=== PATIENT | male | born 1960 | race Caucasian/White ===

== ENCOUNTER 2017-03-17 00:47 | Inpatient (IN) | payer OTHER ==
[2017-03-17] MEDS ORDERED: LIDOCAINE 2% INJ 20 MG/ML (20 ML MDV) ONE (00:55)
[2017-03-17] MEDS ORDERED: fentaNYL (PF) 50 MCG/ML 2 ML AMP ONE (01:10)
[2017-03-17] MEDS ORDERED: VERAPAMIL 2.5 MG/ML 2 ML AMP ONE (01:15)
[2017-03-17] MEDS ORDERED: LIDOCAINE 2% INJ 20 MG/ML SQ ONE (01:16)
[2017-03-17] MEDS ORDERED: VERAPAMIL SYRINGE (5 MG/10 ML) INTRAARTER ONE (01:19)
[2017-03-17] MEDS ORDERED: fentaNYL (PF) 50 MCG/ML 2 ML AMP IV ONE (01:19)
[2017-03-17] MEDS ORDERED: PRASUGREL 10 MG TAB ONE (01:24)
[2017-03-17] MEDS ORDERED: BIVALIRUDIN BOLUS 250 MG/50 ML IV ONE (01:26)
[2017-03-17] MEDS ORDERED: PRASUGREL 10 MG TAB PO ONE (01:26)
[2017-03-17] MEDS ORDERED: SODIUM CHLORIDE 0.9% 1,000 ML IV ONE (01:27)
[2017-03-17] MEDS ORDERED: BIVALIRUDIN 250 MG in SODIUM CHLORIDE 0.9% 50 ML IV ONE (01:27)
[2017-03-17] MEDS ORDERED: METOPROLOL TARTRATE 5 MG/5 ML VIAL IVP ONE ×2 (01:29)
[2017-03-17] MEDS ORDERED: IOHEXOL 350 MG/ML 125ML BOTTLE INJ ONE (01:46)
[2017-03-17] MEDS ORDERED: SODIUM CHLORIDE 0.9% 1,000 ML IV SCH (02:00)
[2017-03-17] MEDS ORDERED: ZOLPIDEM 5 MG TAB PO PRN (02:00)
[2017-03-17] MEDS ORDERED: MAG HYDROX/AL HYDROX/SIMETH 30 ML CUP PO PRN (02:00)
[2017-03-17] MEDS ORDERED: RX INFO: IV CONTRAST WAS GIVEN 1 EACH MISC MISCELLANE PRN (02:00)
[2017-03-17] MEDS ORDERED: ATROPINE SULFATE 0.1 MG/ML 10ML SYRINGE IV PRN (02:00)
[2017-03-17] MEDS ORDERED: NITROGLYCERIN SL TABS 0.4 MG TAB SUBLINGUAL PRN (02:00)
[2017-03-17 02:15] LABS: Glucose,Whole Blood 122 mg/dL (75-99)
[2017-03-17 02:56] LABS: CH 32.1; CHCM 33.8; HCT 40.6 % (39.0-53.0); HDW 2.14; HGB 13.6 gm/dL (13.0-17.5); MCH 31.8 pg (25.0-35.0); MCHC 33.4 g/dL (31.0-37.0); MCV 95.4 fL (80.0-100.0); Mean Platelet Volume 8.1; RBC 4.26 m/uL (4.30-5.90); RDW 13.8 % (11.5-15.5); WBC 11.4 k/uL (3.8-10.6)
[2017-03-17 02:58] VITALS: BMI 45.4
[2017-03-17 03:18] LABS: Anion Gap 13 mmol/L; Blood Urea Nitrogen 13 mg/dL (9-20); Calcium 8.9 mg/dL (8.4-10.2); Carbon Dioxide 25 mmol/L (22-30); Chloride 100 mmol/L (98-107); Glucose 107 mg/dL (74-99); Magnesium 1.9 mg/dL (1.6-2.3); Non-African American GFR(MDRD) >60 (>60 ml/min/1.73 sqM); Sodium 138 mmol/L (137-145)
--- NOTE | 2017-03-17 05:59 | CONS ---
This is a 56-year-old male patient who was watching television at around 11:30 p.m. yesterday. He started experiencing chest discomfort going through to his back with interscapular discomfort. The pain persisted and he went to the emergency room at [facility]. His 12-lead ECG at 11:50 p.m. on the [address] elevation in the inferior leads with Q waves in lead III with ST depression in V1 and V2 as well as lead I and aVL. After he was treated with IV heparin, IV nitroglycerin and aspirin and I asked the physician to give him oral statins. I met the patient in [facility] once he was transferred over. According to the patient, his interscapular discomfort was far more prominent than the anterior chest wall discomfort, but the pain has completed resolved at this time. In fact on the monitor in the laborer yard, he does not appear to have any ST elevation in the inferior leads at all and his pain is completely gone. PAST HISTORY: Hypertension. He is on lisinopril, hydrochlorothiazide. No diabetes, no dyslipidemia. Past history of smoking, he quit smoking 3 years back. ALLERGIES: No known drug allergies. REVIEW OF SYSTEMS: No fever, chills or rigors. No cough or expectoration. No nausea, vomiting or diarrhea. No hematuria or dysuria. No strokes or seizures. No skin lesion or musculoskeletal complaints. On examination, his pulses are equal bilaterally. He has no radial femoral delay. Both radial pulses are equal bilaterally. Heart sounds, S1 and S2 are normal. There is no audible murmur. When I first examined them in the ER at [place], he had ventricular bigeminy which is also resolved. Breath sounds are equal bilaterally. He has central obesity. His BMI is 37. Abdomen is soft, nontender. Extremities are warm, no edema. Pulses are well palpable and are equal in both lower extremities. IMPRESSION: 1. A 56-year-old male patient presenting with chest discomfort radiating through to his back with ST elevation in the inferior leads with ST depression in V1 and V2 and one in aVL (ST elevation myocardial infarction). 2. Hypertension, elevated blood pressure. 3. Equal pulses bilaterally in both lower extremities and no brachial femoral delay. SUGGEST: The patient is already in the laborer yard; therefore, we will proceed with coronary angiography. I spoke to the ER physician once again to inquire about the chest x-ray. He did state that the mediastinum appeared to be somewhat ( ) side, but he had thought that he was a large gentleman and therefore this was acceptable. I did speak with Dr. Gann regarding the interscapular back discomfort, which is not completely resolved. We will proceed with coronary angiography given that the pulses are equal bilaterally. TAMARA
--- NOTE | 2017-03-17 08:36 | P.PN ---
Subjective Principal diagnosis: Acute coronary syndrome Acute inferior ST elevation AR This is a pleasant 68-year-old gentleman who presented to the hospital for chest discomfort and was diagnosed with acute inferior STEMI. He underwent an emergent heart catheterization and stenting of the RCA. He is asymptomatic from a cardiovascular standpoint of view and denies having any chest pain or discomfort or difficulty breathing. Objective - Vital Signs Vital signs: Vital Signs Temp 98.8 F 03/17/17 04:00 Pulse 74 03/17/17 07:00 Resp 15 03/17/17 07:00 BP 152/76 03/17/17 07:00 Pulse Ox 92 L 03/17/17 07:00 Intake & Output 03/16/17 03/17/17 03/17/17 18:59 06:59 18:59 Intake Total 487.8 100 Output Total 700 Balance -212.2 100 Weight 135.7 kg Intake: IV 487.8 100 Sodium Chloride 0.9% 1, 400 100 000 ml @ 100 mls/hr IV . Q10H ISAC Rx#:[id number] Output: Urine 700 - Constitutional General appearance: Present: no acute distress - Respiratory Respiratory: bilateral: CTA - Cardiovascular Rhythm: regular Heart sounds: normal: S1, S2 - Labs CBC & Chem 7: 03/17/17 02:37 03/17/17 02:37 Labs: Abnormal Lab Results - Last 24 Hours (Table) 03/17/17 03/17/17 03/17/17 Range/Units 02:13 02:37 02:37 WBC 11.4 H (3.8-10.6) k/uL RBC 4.26 L (4.30-5.90) m/uL Glucose (74-99) mg/dL POC Glucose (mg/dL) 122 H (75-99) mg/dL Troponin I 0.719 H* (0.000-0.034) ng/mL 03/17/17 Range/Units 02:37 WBC (3.8-10.6) k/uL RBC (4.30-5.90) m/uL Glucose 107 H (74-99) mg/dL POC Glucose (mg/dL) (75-99) mg/dL Troponin I (0.000-0.034) ng/mL Assessment and Plan Plan: This is a 56-year-old gentleman with acute inferior AR 1 underwent stenting of the RCA. I will continue the current medical treatment which included dual antiplatelet therapy and statin and follow-up with the patient. Follow-up on the echocardiogram.
[2017-03-17] MEDS: ASPIRIN 81 MG CHEW PO SCH (08:56)
[2017-03-17] MEDS: LISINOPRIL 5 MG TAB PO SCH (08:56)
[2017-03-17] MEDS: METOPROLOL TARTRATE 25 MG TAB PO SCH ×2 (08:56→20:26)
[2017-03-17] MEDS: PRASUGREL 10 MG TAB PO SCH (10:16)
[2017-03-17 17:53] LABS: Appearance,Urine Clear (Clear); Bilirubin,Urine Negative (Negative); Glucose,Urine (UA) Negative (Negative); Ketones,Urine Negative (Negative); Leukocyte Esterase,Urine Negative (Negative); Nitrite,Urine Negative (Negative); PH, Urine 6.5 (5.0-8.0); Protein,Urine Negative (Negative); Specific Gravity,Urine 1.009 (1.001-1.035); UA Billing (MACRO vs. MICRO) CHEM; Urobilinogen,Urine <2.0 mg/dL (<2.0)
--- NOTE | 2017-03-17 19:09 | ECHOF ---
Referral Reason:mi MEASUREMENTS -------- HEIGHT: 182.9 cm WEIGHT: 124.7 kg BP: 138/73 RVIDd: 3.8 cm (< 3.3) IVSd: 1.2 cm (0.6 - 1.1) LVIDd: 3.9 cm (3.9 - 5.3) LVPWd: 1.3 cm (0.6 - 1.1) IVSs: 1.6 cm LVIDs: 3.1 cm LVPWs: 1.3 cm LA Diam: 3.3 cm (2.7 - 3.8) LAESV Index (A-L): 26.36 ml/m Ao Diam: 3.4 cm (2.0 - 3.7) AV Cusp: 1.7 cm (1.5 - 2.6) LA Diam: 3.8 cm (2.7 - 3.8) MV EXCURSION: 18.069 mm (> 18.000) MV EF SLOPE: 122 mm/s (70 - 150) EPSS: 0.5 cm MV E Johnny: 0.95 m/s MV DecT: 219 ms MV A Johnny: 0.70 m/s MV E/A Ratio: 1.35 RAP: 5.00 mmHg RVSP: 11.07 mmHg FINDINGS -------- Sinus rhythm. Morbid Obesity This was a techncally difficult study with suboptimal views, , Definity utilized for enhancement of images. There is mild concentric left ventricular hypertrophy. Overall left ventricular systolic function is normal with, an EF between 55 - 60 %. The right ventricle is moderately enlarged. Normal LA size by volume 22+/-6 ml/m2. The right atrial size is normal. 1.5MG OF DEFINITY UTLIZED: 2 OR MORE WALL SEGMENTS NOT VISUALIZED. There is mild aortic valve sclerosis. There is no evidence of aortic regurgitation. Mild mitral regurgitation is present. Mild tricuspid regurgitation present. There is no evidence of pulmonary hypertension. The right ventricular systolic pressure, as measured by Doppler, is 11.07mmHg. Trace/mild (physiologic) pulmonic regurgitation. The aortic root size is normal. Echo free space may represent effusion or a pericardial fat pad. CONCLUSIONS -------- 1. Morbid Obesity 2. There is no evidence of pulmonary hypertension. 3. The right ventricular systolic pressure, as measured by Doppler, is 11.07mmHg. 4. Trace/mild (physiologic) pulmonic regurgitation. 5. Echo free space may represent effusion or a pericardial fat pad. 6. This was a techncally difficult study with suboptimal views, , Definity utilized for enhancement of images. 7. There is mild concentric left ventricular hypertrophy. 8. Overall left ventricular systolic function is normal with, an EF between 55 - 60 %. 9. The right ventricle is moderately enlarged. 10. 1.5MG OF DEFINITY UTLIZED: 2 OR MORE WALL SEGMENTS NOT VISUALIZED. 11. There is mild aortic valve sclerosis. 12. Mild mitral regurgitation is present. 13. Mild tricuspid regurgitation present. BUSINESS SYSTEM MANAGER: Kendal Ji RDCS
[2017-03-17] MEDS: ATORVASTATIN 80 MG TAB PO SCH (20:26)
[2017-03-17] MEDS ORDERED: Magnesium Replacement Protocol 1 EACH MISC MISCELLANE PRN (21:05)
[2017-03-17] MEDS: MAGNESIUM SULFATE-D5W PMX 1 GM in DEXTROSE/WATER 1 100ML.BAG IVPB SCH ×2 (21:45→22:46)
[2017-03-18 04:49] LABS: Basophils # (A) 0.1 k/uL (0-0.2); Basophils % (A) 1 %; CH 31.4; CHCM 33.2; Eosinophils # (A) 0.2 k/uL (0-0.7); Eosinophils % (A) 2 %; HCT 39.8 % (39.0-53.0); HDW 2.18; HGB 13.5 gm/dL (13.0-17.5); Luc # (Auto) 0.15; Luc % (Auto) 1; Lymphocytes # (A) 2.1 k/uL (1.0-4.8); Lymphocytes % (A) 19 %; MCH 32.3 pg (25.0-35.0); MCV 95.1 fL (80.0-100.0); Mean Platelet Volume 7.4; Monocytes # (A) 0.7 k/uL (0-1.0); Monocytes % (A) 6 %; Neutrophils % (A) 71 %; RBC 4.18 m/uL (4.30-5.90); RDW 13.4 % (11.5-15.5); WBC 11.2 k/uL (3.8-10.6); WBC (Perox) 11.26
[2017-03-18 04:58] LABS: Anion Gap 5 mmol/L; Blood Urea Nitrogen 9 mg/dL (9-20); Calcium 8.2 mg/dL (8.4-10.2); Carbon Dioxide 28 mmol/L (22-30); Chloride 106 mmol/L (98-107); Cholesterol 156 mg/dL (<200); Glucose 87 mg/dL (74-99); HDL Cholesterol 30 mg/dL (40-60); Magnesium 2.3 mg/dL (1.6-2.3); Non-African American GFR(MDRD) >60 (>60 ml/min/1.73 sqM); Sodium 139 mmol/L (137-145)
--- NOTE | 2017-03-18 07:47 | CC ---
Mr. Salter is a 56 year old male with known history of hypertension who presented to [facility] with symptoms of intrascapularly discomfort as well as EKG change with ST segment elevation inferiorly. He was evaluated by Dr. Burton and recommendation was made regarding cardiac catheterization. The procedure as well as risks and complications were discussed with the patient who is in full understanding and agreement. PROCEDURE: The patient was brought to the geotechnical laboratory technician. After he received Fentanyl and Benadryl, and after achieving moderate conscious sedated state, using Xylocaine anesthesia and Seldinger technique, a 6 Faroese sheath was introduced into the right radial artery . Selective right and left coronary angiography was performed using 5 Faroese 3.5 Bend, right and left Jeferson catheter, multiple views of the coronary arteries including hemiaxial views were obtained. Following that, angioplasty and stenting of the right coronary artery was performed. Following that a 5 Faroese tight pigtail catheter was introduced into the left ventricle and a 30 degree TURNER view of the left ventricle was obtained. Following that, catheter and sheath were removed. Hemostasis was obtained with deployment of a TR band. There were no immediate complications. The patient was returned to his room in stable condition. FINDINGS: LEFT MAIN: This is a large size vessel bifurcating into left circumflex, left anterior descending artery. Left main coronary artery has 20 to 30% plaque distally. LEFT ANTERIOR DESCENDING ARTERY: This is a large size vessel reaching towards the apex with a wrap around the apex segment. The left anterior descending artery has no evidence of high grade stenosis. LEFT CIRCUMFLEX: This is a large nondominant vessel, large vessel, giving rise to large obtuse marginal branches. The left circumflex at the takeoff has 40 to 50% plaque. The rest of the vessel has no high grade stenosis. RIGHT CORONARY ARTERY: This is a large dominant vessel, bifurcating distally into PDA and posterolateral segment and branches. The right coronary artery in the mid distal segment has a tubular lesion of 99% stenosis. The rest of the vessel has no high grade stenosis. LEFT VENTRICULOGRAM: Left ventriculogram was performed in 30 degree TURNER view and revealed minimal inferobasal hypokinesis. The ejection fraction was 50 to 55%. There was no significant mitral regurgitation. HEMODYNAMICS: There was no gradient across the aortic valve. The left ventricular end diastolic pressure was 18 mmHg. CONCLUSION: 1. Critical stenosis involving the mid distal right coronary artery. 2. Mild disease in the distal left main with moderate disease n the ostial LCX. 3. Minimally impaired left ventricular systolic function. RECOMMENDATIONS: In view of the findings and anatomy, I have recommended proceeding with angioplasty and stenting. The procedure as well as risks and complications were discussed with the patient who is in full understanding and agreement. TAMARA
--- NOTE | 2017-03-18 08:12 | PTCA ---
Mr. Salter is a 56 -year-old male who presented with symptoms of intrascapulary discomfort with ST segment elevation inferiorly, underwent cardiac catheterization and was found to have critical stenosis involving the mid distal right coronary artery. In view of that, recommendation was made regarding angioplasty and stenting. The procedure as well as risks and complications were discussed with the patient who is in full understanding and agreement. PROCEDURE: A 6 Burmese 3.5 bend FR guiding catheter was introduced into the system. After cannulating the right coronary ostium, 0.014 balanced medium weight J wire was advanced across the lesion and positioned distally. Then a 3.0 x 18 mm Xience Alpine stent was deployed. It was dilated at 14 atmospheres. After the last inflation, after appropriate wait, the balloon and the guidewire were withdrawn back in the guiding catheter. Images were obtained, repeated. Those images revealed stable successful stenting. At that point, the guiding catheter, the balloon and the guidewire were removed and a 5 Burmese tight pigtail catheter was introduced into the left ventricle. Left ventriculogram was obtained. Following that, the catheter and sheath were removed. Hemostasis was obtained with deployment of a TR band. There were no immediate complications. The patient is returned to his room in stable condition. Of note, the patient received Angiomax per protocol as well as oral loading dose of Effient. He had EKG changes with the inflation that resolved at the end of the procedure. RESULTS: Successful stenting of the distal right coronary artery with reduction of stenosis from 99% to 0%. RECOMMENDATIONS: The patient will be continued on aspirin, Effient, beta felipe , alex inhibitors, statins. The importance of dual antiplatelet treatment was discussed with the patient and his family who is in full understanding and agreement. Duration of procedure: 40 minutes. TAMARA
[2017-03-18] MEDS: ASPIRIN 81 MG CHEW PO SCH (08:16)
[2017-03-18] MEDS: LISINOPRIL 5 MG TAB PO SCH (08:16)
[2017-03-18] MEDS: METOPROLOL TARTRATE 25 MG TAB PO SCH ×2 (08:16→20:39)
[2017-03-18] MEDS: PRASUGREL 10 MG TAB PO SCH (08:17)
--- NOTE | 2017-03-18 11:28 | HP ---
CHIEF COMPLAINT: Chest pain. HISTORY OF PRESENT ILLNESS: This 56-year-old gentleman with a past medical history of multiple medical problems, including hypertension, history of pneumonia, being followed by Dr. Mendoza in the outpatient setting, presented to [facility] with complaints of chest pain. The pain was felt in the anterior part of the chest, radiating to the back, and the pain was in character. The patient had ST-T changes in the inferior leads. He was transferred to [facility] for cardiac catheterization. The patient underwent RCA stenting. He is being closely monitored at this time. There is no history of any fever, rigor or chills. No history of headache, loss of consciousness, seizures. PAST MEDICAL HISTORY: 1. History of hypertension. 2. History of pneumonia. Medications prior to admission include Losartan/hydrochlorothiazide 100/25 p.o. daily. ALLERGIES: NONE. FAMILY HISTORY: History of cardiac ablation. SOCIAL HISTORY: Previous history of smoking. No current smoking. Occasional alcohol intake. REVIEW OF SYSTEMS: ENT: No diminished hearing. No diminished vision. CARVIOVASCULAR SYSTEM: As mentioned earlier. RESPIRATORY SYSTEM: As mentioned earlier. GI: No nausea, vomiting. : No dysuria, retention. NERVOUS SYSTEM: No numbness, weakness. ALLERGY/IMMUNOLOGY: No asthma, hayfever. MUSCULOSKELETAL: As mentioned earlier. HEMATOLOGY/ONCOLOGY: No history of anemia. ENDOCRINE: No history of diabetes. CONSTITUTIONAL: As mentioned earlier. DERMATOLOGY: Negative. RHEUMATOLOGY: Negative. PSYCHIATRY: As mentioned earlier. PHYSICAL EXAM: Patient is alert and oriented x3. Pulse is 71, blood pressure 108 /68, respiration 15, temperature normal, pulse ox 93% on room air. HEENT: Conjunctivae normal. NECK: No jugular venous distention. CARDIOVASCULAR: S1, S2 muffled. RESPIRATORY: Breath sounds diminished at the bases. No rhonchi. No crackles. ABDOMEN: Soft. Non-tender. No mass palpable. LEGS: No edema. No swelling. NERVOUS SYSTEM: Higher functions as mentioned earlier. Moves all 4 limbs. No focal motor or sensory deficit. LYMPHATICS: No lymph node palpable in neck, axillae or groin. SKIN: No ulcer, rash, bleeding. LABS: WBC 11.4. Troponin 0.719. ASSESSMENT: 1. Acute [id number] inferior wall myocardial infarction, status post cardiac catheterization and RCA stenting. 2. Troponin 5.50. 3. Increased white count, possibly reactive. 4. Hypertension. 5. History of pneumonia. 6. Remote history of nicotine dependence. RECOMMENDATIONS AND DISCUSSION: I recommend to continue the current medications , continue the monitoring and symptomatic treatment. Otherwise, at this time I would recommend repeat labs. I would also recommend UA with micro. Closely follow with Cardiology. Antiplatelet agents. Post stent protocol. Further recommendations to follow. Recommend close followup with primary physician after discharge. TAMARA
--- NOTE | 2017-03-18 19:57 | P.PN ---
Subjective Principal diagnosis: Acute coronary syndrome Acute inferior ST elevation OR This is a pleasant 68-year-old gentleman who presented to the hospital for chest discomfort and was diagnosed with acute inferior STEMI. He underwent an emergent heart catheterization and stenting of the RCA. He is asymptomatic from a cardiovascular standpoint of view and denies having any chest pain or discomfort or difficulty breathing. Objective - Vital Signs Vital signs: Vital Signs Temp 97 F L 03/18/17 14:09 Pulse 71 03/18/17 14:09 Resp 16 03/18/17 14:09 BP 143/87 03/18/17 14:09 Pulse Ox 96 03/18/17 14:09 Intake & Output 03/18/17 03/18/17 03/19/17 06:59 18:59 06:59 Intake Total 1100 240 Output Total 1500 Balance -400 240 Weight 134.1 kg Intake: IV 1000 Magnesium Sulfate-D5w Pmx 200 1 gm In Dextrose/Water 1 100ml.bag @ 100 mls/hr IVPB Q1H ISAC Rx#: [id number] Sodium Chloride 0.9% 1, 800 000 ml @ 100 mls/hr IV . Q10H ISAC Rx#:[id number] Oral 100 240 Output: Urine 1500 Other: Voiding Method Urinal Urinal # Voids 0 - Constitutional General appearance: Present: no acute distress - Respiratory Respiratory: bilateral: CTA - Cardiovascular Rhythm: regular Heart sounds: normal: S1, S2 - Labs CBC & Chem 7: 03/18/17 04:27 03/18/17 04:27 Labs: Abnormal Lab Results - Last 24 Hours (Table) 03/18/17 03/18/17 Range/Units 04:27 04:27 WBC 11.2 H (3.8-10.6) k/uL RBC 4.18 L (4.30-5.90) m/uL Neutrophils # 8.0 H (1.3-7.7) k/uL Calcium 8.2 L (8.4-10.2) mg/dL LDL Cholesterol, Calc 104 H (0-99) mg/dL HDL Cholesterol 30 L (40-60) mg/dL Assessment and Plan Plan: This is a 56-year-old gentleman with acute inferior OR 1 underwent stenting of the RCA. I will continue the current medical treatment which included dual antiplatelet therapy and statin and follow-up with the patient. Follow-up on the echocardiogram.
[2017-03-18] MEDS: ATORVASTATIN 80 MG TAB PO SCH (20:39)
[2017-03-19] MEDS: METOPROLOL TARTRATE 25 MG TAB PO SCH ×2 (09:37→19:57)
[2017-03-19] MEDS: PRASUGREL 10 MG TAB PO SCH (09:37)
[2017-03-19] MEDS: LISINOPRIL 5 MG TAB PO SCH (09:37)
[2017-03-19] MEDS: ASPIRIN 81 MG CHEW PO SCH (09:37)
[2017-03-19] MEDS ORDERED: LISINOPRIL 10 MG TAB PO SCH (11:26)
--- NOTE | 2017-03-19 11:28 | P.PN ---
Subjective Principal diagnosis: Acute coronary syndrome This is a pleasant 68-year-old gentleman who presented to the hospital for chest discomfort and was diagnosed with acute inferior STEMI. He underwent an emergent heart catheterization and stenting of the RCA. He is asymptomatic from a cardiovascular standpoint of view and denies having any chest pain or discomfort or difficulty breathing. The blood pressure continues to be slightly uncontrolled and I would increase the dose of lisinopril. Objective - Vital Signs Vital signs: Vital Signs Temp 97.1 F L 03/19/17 08:00 Pulse 68 03/19/17 08:00 Resp 16 03/19/17 08:00 BP 162/95 03/19/17 08:00 Pulse Ox 95 03/19/17 08:00 Intake & Output 03/18/17 03/19/17 03/19/17 18:59 06:59 18:59 Intake Total 240 200 100 Balance 240 200 100 Weight 133.6 kg Intake: Oral 240 200 100 Other: Voiding Method Urinal Toilet # Voids 1 - Constitutional General appearance: Present: no acute distress - Respiratory Respiratory: bilateral: CTA - Cardiovascular Rhythm: regular Heart sounds: normal: S1, S2 - Labs CBC & Chem 7: 03/18/17 04:27 03/18/17 04:27 Assessment and Plan Plan: This is a 56-year-old gentleman with acute inferior GA and s/p stenting of the RCA. We'll continue the current medical treatment was dual antiplatelet therapy and statin. Increase the dose of lisinopril for better blood pressure control. Anticipating discharge tomorrow morning.
[2017-03-19] MEDS ORDERED: LISINOPRIL 5 MG TAB PO STA (12:39)
[2017-03-19] MEDS: ATORVASTATIN 80 MG TAB PO SCH (19:57)
--- NOTE | 2017-03-19 22:05 | PN ---
DATE OF SERVICE: 03/18/17 This 56 -year-old gentleman who was admitted after inferior wall myocardial infarction also had RCA stenting. No chest pain. No palpitations. No fever. On exam, the patient is alert and oriented times three. Pulse 71. Blood pressure 143/87. Respiratory rate 16. Temperature 97 degrees. Pulse ox 97% on room air. HEENT: Conjunctivae normal. Neck: No JVD. CARDIOVASCULAR: S1, S2 muffled. Respiratory: Breath sounds diminished at the bases. No rhonchi. No crackles. Abdomen soft, obese, nontender. LEGS: No edema. No swelling. 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 LABS: WBC 11.2. UA noted. LDL 104. ASSESSMENT: 1. Acute ST segment elevation inferior myocardial infarction, status post cardiac catheterization, RCA stenting. 2. Troponin 5.50. 3. Increased WBC. 4. Hypertension. RECOMMENDATIONS AND DISCUSSION: Recommend to continue the current medications, continue symptomatic treatment, otherwise continue antiplatelet agents, increase ambulation, guarded prognosis, further recommendations to follow. ULYSSESD
[2017-03-20] MEDS: ASPIRIN 81 MG CHEW PO SCH (08:26)
[2017-03-20] MEDS: PRASUGREL 10 MG TAB PO SCH (08:27)
[2017-03-20] MEDS: METOPROLOL TARTRATE 25 MG TAB PO SCH (08:27)
[2017-03-20 08:34] VITALS: RESP 18
[2017-03-20 13:27] VITALS: BP 139/85; PULSE 67; TEMP 97.7
--- NOTE | 2017-03-20 14:40 | P.PN ---
Subjective Principal diagnosis: This is a 56-year-old gentleman who presented to the hospital with an acute inferior wall myocardial infarction. He underwent angioplasty with stenting of the right coronary artery. Patient seen and examined this morning, denies any chest pain or difficulty in breathing. He is been up ambulating without any difficulty. Blood pressure this morning 138/80, heart rate in the 60s. Echocardiogram with Doppler study was performed which revealed an ejection fraction of 55-60%. Objective - Vital Signs Vital signs: Vital Signs Temp 97.7 F 03/20/17 12:00 Pulse 67 03/20/17 12:00 Resp 18 03/20/17 12:00 BP 139/85 03/20/17 12:00 Pulse Ox 98 03/20/17 12:00 Intake & Output 03/19/17 03/20/17 03/20/17 18:59 06:59 18:59 Intake Total 220 240 Balance 220 240 Weight 134 kg Intake: Oral 220 240 Other: Voiding Method Toilet Toilet # Voids 1 1 # Bowel Movements 1 - Exam PHYSICAL EXAMINATION: HEENT: Head is atraumatic, normocephalic. Pupils equal, round. Neck is supple. There is no elevated jugular venous pressure. HEART EXAMINATION: Heart S1, S2 normal. No murmur or gallop heard. CHEST EXAMINATION: Lungs are clear to auscultation and precussion. No chest wall tenderness is noted on palpation or with deep breathing. ABDOMEN: Soft, nontender. Bowel sounds are heard. No organomegaly noted. EXTREMITIES: 2+ peripheral pulses with no evidence of peripheral edema and no calf tenderness noted. NEUROLOGIC patient is awake, alert and oriented -3. . - Labs CBC & Chem 7: 03/18/17 04:27 03/18/17 04:27 Assessment and Plan (1) ST elevation myocardial infarction (STEMI) of inferior wall Status: Acute (2) S/P right coronary artery (RCA) stent placement Status: Acute (3) HTN (hypertension) Status: Acute (4) Hyperlipemia Status: Acute Plan: Cardiology's perspective, patient may be able to be discharged home today. We' ll make him a follow-up appointment with Dr. Burton in the office in one week. Patient will be discharged home on aspirin 81 mg daily, Lipitor 80 mg daily, Zestril 10 mg daily, Lopressor 25 mg one tablet by mouth twice a day, Effient 10 mg daily, sublingual nitroglycerin as needed for chest pain. Patient has been educated regarding his medications and he has been provided prescriptions for all of the above medications as well. DNP note has been reviewed, I agree with a documented findings and plan of care. Patient was seen and examined.
--- NOTE | 2017-03-20 15:04 | PN ---
DATE OF SERVICE: 03/19/2017 This is a 56-year-old gentleman who was admitted with acute ST elevation inferior wall myocardial infarction, head a cardiac catheterization with RCA stenting. No chest pain or palpitation, no fever. On exam, alert and oriented x3. Pulse is 66, blood pressure 130/85, respirations 16, temperature is 97.8, pulse ox 98% on room air. HEENT: Conjunctivae normal. NECK; No jugular venous distension. CARDIOVASCULAR SYSTEM: S1, S2, muffled. RESPIRATORY: Breath sounds diminished at the bases, a few scattered rhonchi, no crackles. ABDOMEN: Soft, nontender. LEGS: No edema, no swelling. NERVOUS SYSTEM: No focal deficits. LABS: WBC is 11.2, no other labs are noted. ASSESSMENT: 1. Acute ST-segment elevation with inferior wall myocardial infarction, status post cardiac catheterization with right coronary artery stenting. 2. Troponin 5.50. 3. Increased WBC, possibly reactive. 4. Hypertension, essential. 5. History of pneumonia. 6. Remote history of nicotine dependence. RECOMMENDATION: Recommend to continue with the current medication. Continue with the monitoring and symptomatic treatment. Otherwise at this time I would recommend antiplatelet agent and beta blockers. Closely follow with Cardiology. Increase ambulation. Further recommendations to follow. MTDD
--- NOTE | 2017-03-20 19:12 | P.DS ---
Providers Date of admission: 03/17/17 01:00 Attending physician: Eric Yang Consults: 03/17/17 02:01 Consult Physician Routine Consulting Provider: [facility] Consult Reason/Comments: Post Interventional patient Do you want consulting provider notified?: Already Contacted Primary care physician: Stated None Hospital Course: This 56-year-old gentleman was admitted with acute myocardial infarction. Cardiology performed a cardiac catheterization and RCA stenting. Improved significantly. No chest pain or palpitation. On exam vitals stable cardio S1-S2 normal. Breath sounds normal. Abdomen soft nontender. Vital diagnosis 1. Acute ST segment elevation inferior wall myocardial infarction status post cardiac cath and RCA stenting. 2. Increased WBC possibly reactive 4. Hypertension essential 5. Modest" dependence Plan - Discharge Summary New Discharge Prescriptions: New Aspirin 81 mg PO DAILY #30 Atorvastatin [Lipitor] 80 mg PO HS #30 tab Lisinopril [Zestril] 10 mg PO DAILY #30 tab Metoprolol Tartrate [Lopressor] 25 mg PO BID #60 tab Nitroglycerin Sl Tabs [Nitrostat] 0.4 mg SUBLINGUAL Q5M PRN #25 tab PRN Reason: Chest Pain Prasugrel [Effient] 10 mg PO DAILY #30 tab Discontinued Losartan/Hydrochlorothiazide [Losartan-Hctz 100-25 mg Tab] 1 tab PO DAILY Discharge Medication List Aspirin 81 mg PO DAILY #30 03/20/17 [Rx] Atorvastatin [Lipitor] 80 mg PO HS #30 tab 03/20/17 [Rx] Lisinopril [Zestril] 10 mg PO DAILY #30 tab 03/20/17 [Rx] Metoprolol Tartrate [Lopressor] 25 mg PO BID #60 tab 03/20/17 [Rx] Nitroglycerin Sl Tabs [Nitrostat] 0.4 mg SUBLINGUAL Q5M PRN #25 tab 03/20/17 [Rx ] Prasugrel [Effient] 10 mg PO DAILY #30 tab 03/20/17 [Rx] Follow up Appointment(s)/Referral(s): Heriberto Burton MD [STAFF PHYSICIAN] - 03/24/17 5:30 pm Andriy Mendoza MD [STAFF PHYSICIAN] - 03/23/17 11:30 am Patient Instructions/Handouts: *Sur[facility] - After Heart Catheterization - Afternoon Nanny Instructions, Heart Healthy Diet (DC) Activity/Diet/Wound Care/Special Instructions: diet cardiac act limited till f/u Discharge Disposition: HOME SELF-CARE
== END 2017-03-20 14:22 | disposition home or self-care (01) | DRG 247 ==
LOC: EC 00:47 → 6ICU 01:00 → 6SEL 03-18 13:33
PROVIDERS: ADMIT Hospitalist; ATTEND Hospitalist
PROC: B2111ZZ Fluoroscopy of Multiple Coronary Arteries using Low Osmolar Contrast (ICD-10-PCS; 2017-03-17)
PROC: B2151ZZ Fluoroscopy of Left Heart using Low Osmolar Contrast (ICD-10-PCS; 2017-03-17)
PROC: 027034Z Dilation of Coronary Artery, One Artery with Drug-eluting Intraluminal Device, Percutaneous Approach (ICD-10-PCS; principal; 2017-03-17 00:52)
PROC: 4A023N7 Measurement of Cardiac Sampling and Pressure, Left Heart, Percutaneous Approach (ICD-10-PCS; 2017-03-17 00:52)
DX: I21.19 ST elevation (STEMI) myocardial infarction involving other coronary artery of inferior wall (principal); I10 Essential (primary) hypertension; I25.10 Atherosclerotic heart disease of native coronary artery without angina pectoris; E66.9 Obesity, unspecified; E78.5 Hyperlipidemia, unspecified; Z87.01 Personal history of pneumonia (recurrent); Z87.891 Personal history of nicotine dependence; Z79.899 Other long term (current) drug therapy; Z86.79 Personal history of other diseases of the circulatory system
CPT/HCPCS: 80048; 80061; 81003; 83735; 84484; 85025; 85027; 93306